=== PATIENT | female | born 1965 | race Caucasian/White ===

== ENCOUNTER → 2016-10-29 | Outpatient (CLI) | payer BC ==
[2016-10-29 18:16] LABS: BLOOD UREA NITROGEN 13 mg/dl (7-18); BUN/CREATININE RATIO 20.7 (10-20); CALCIUM 8.9 mg/dl (8.5-10.1); CARBON DIOXIDE 27 mmol/L (21-32); CHLORIDE 105 mmol/L (98-107); CREATININE 0.64 mg/dl (0.60-1.20); GLUCOSE 103 mg/dl (70-99); POTASSIUM 3.6 mmol/L (3.5-5.1); SODIUM 141 mmol/L (136-145)
[2016-10-29 18:27] LABS: CHOLESTEROL 180 mg/dl (0-200); CHOLESTEROL/HDL RATIO 4.4; HDL CHOLESTEROL 41 mg/dl; LDL CHOLESTEROL CALCULATED 71 mg/dl; PHOSPHORUS 3.1 mg/dl (2.5-4.9); TRIGLYCERIDES 338 mg/dl (0-150); VERY LOW DENSITY LIPOPROT CALC 68 mg/dl
[2016-10-29 20:03] LABS: ESTIMATED AVERAGE GLUCOSE 143 mg/dl; HA1C FLAG Normal (Normal)
== END | disposition home or self-care (01) ==
LOC: C.LABMFLN 14:52
PROVIDERS: ATTEND Family Medicine
DX: E66.9 Obesity, unspecified (principal); Z13.1 Encounter for screening for diabetes mellitus; Z13.220 Encounter for screening for lipoid disorders

== ENCOUNTER → 2017-04-29 | Outpatient (CLI) | payer BC ==
[2017-04-30 06:34] LABS: ESTIMATED AVERAGE GLUCOSE 131 mg/dl; HA1C FLAG Normal (Normal)
== END | disposition home or self-care (01) ==
LOC: C.LABMFLN 13:50
PROVIDERS: ATTEND Family Medicine
DX: R73.03 Prediabetes (principal)

== ENCOUNTER → 2017-07-05 | Outpatient (CLI) | payer BC ==
[2017-07-05 18:04] LABS: BASO % 0.6 %; BASO ABS # 0.03 K/uL (0-0.2); EOS % 4.5 %; EOS ABS # 0.21 K/uL (0-0.5); HEMATOCRIT 41.3 % (37-47); HEMOGLOBIN 13.5 g/dL (12.0-16.0); IG# 0.01 K/uL (0.00-0.02); LYMPH % 32.5 %; LYMPH ABS # 1.52 K/uL (1.2-3.4); MEAN CORPUSCULAR HEMOGLOBIN 26.5 pg (25-34); MEAN CORPUSCULAR HGB CONC 32.7 g/dl (32-36); MEAN PLATELET VOLUME 11.3 fL (7.4-10.4); MONO % 11.8 %; MONO ABS # 0.55 K/uL (0.11-0.59); NEUT % 50.4 %; NEUT ABS # 2.36 K/uL (1.4-6.5); PLATELET COUNT 227 K/uL (130-400); RED CELL DISTRIBUTION WIDTH CV 13.7 % (11.5-14.5); RED CELL DISTRIBUTION WIDTH SD 40.9 fL (36.4-46.3); WHITE BLOOD COUNT 4.68 K/uL (4.8-10.8)
== END | disposition home or self-care (01) ==
LOC: C.LABMFLN 14:38
PROVIDERS: ATTEND Family Medicine
DX: R06.02 Shortness of breath (principal)

== ENCOUNTER 2023-11-01 08:28 | Observation (INO) ==
--- NOTE | 2023-09-13 11:22 | PAT Medication Instructions ---
Medication Instructions Date of Service September 13, 2023 Home Medications cholecalciferol (vitamin D3) 125 mcg (5,000 unit) tablet 10,000 unit PO Q2D multivitamin 1 tab PO QPM Glucoberry 1 tab PO QAM ascorbic acid (vitamin C) 1,000 mg tablet (Vitamin C) 1 g PO QPM cetirizine 10 mg capsule (Zyrtec) 10 mg PO QAM allergy symptoms lactobacillus combination no.9 4 billion cell capsule (Adult 50 Plus Probiotic) 0 mmu cells PO QPM STOP taking 2 weeks before surgery (or as soon as possible if surgery is within 2 weeks) Glucoberry 1 tab PO QAM DO NOT take the morning of surgery cholecalciferol (vitamin D3) 125 mcg (5,000 unit) tablet 10,000 unit PO Q2D cetirizine 10 mg capsule (Zyrtec) 10 mg PO QAM allergy symptoms Take evening before surgery multivitamin 1 tab PO QPM ascorbic acid (vitamin C) 1,000 mg tablet (Vitamin C) 1 g PO QPM lactobacillus combination no.9 4 billion cell capsule (Adult 50 Plus Probiotic) 0 mmu cells PO QPM Other Notes If you have any questions please call us at [phone] or [phone] or [phone] or [phone]
--- NOTE | 2023-09-28 08:38 | Anesthesiology Consultation ---
Date of Service September 28, 2023 Assessment & Plan (1) Encounter for pre-operative examination: - check BSG am DOS. - [place] PCP 10/06/23 office note. Will send optimization workload note. - anesthesia considerations: patient states did not have neuraxial anesthesia with c-sections as elected for general due to concerns she might develop a spinal headache as she would frequently experience headaches in the past. She states headaches with associated vomiting have significantly reduced over the years and she would prefer spinal vs general for upcoming surgery. - glucoberry: patient expressed desire to not stop supplement for 2 weeks as this is used for diabetic control per patient. This was discussed with Dr. Islas who asked that patient stop supplement for 7 days. I contacted patient who states she is comfortable stopping supplement for 7 days, denied additional questions or concerns. Chart Review Chart Review: Pending: Refer to Additional Notes / Consult section and Patient seen in Pre Admission Testing Teaching & Discussion Pre-Anesthesia Teaching/Discussion Notes: Instructed NPO after midnight before surgery, except medications with 15 cc of water. Medication instructions provided according to the PAT guidelines. History Surgery Operation Date: 11/01/23 07:00 Proposed Procedures p Right Total Knee Arthroplasty - Jordi Darling, DO Height/Weight Height: 5 ft 1 in Weight: 87.9 kg Allergies Allergy/AdvReac Type Severity Reaction Status Date / Time cephalexin [From Keflex] Allergy Unknown hives Verified 09/09/23 14:44 Sulfa (Sulfonamide Allergy Unknown pt doesn't Verified 09/09/23 14:44 Antibiotics) know, my mom always told me allergic to Medications Home Medications Medication Instructions Recorded Confirmed Last Taken cholecalciferol (vitamin D3) 125 10,000 unit PO Q2D 08/14/20 09/09/23 Unknown mcg (5,000 unit) tablet multivitamin 1 tab PO QPM 08/14/20 09/09/23 Unknown Glucoberry 1 tab PO QAM 09/09/23 09/09/23 Unknown ascorbic acid (vitamin C) 1,000 mg 1 g PO QPM 09/09/23 09/09/23 Unknown tablet (Vitamin C) cetirizine 10 mg capsule (Zyrtec) 10 mg PO QAM allergy symptoms 09/09/23 09/09/23 Unknown lactobacillus combination no.9 4 0 mmu cells PO QPM 09/09/23 09/09/23 Unknown billion cell capsule (Adult 50 Plus Probiotic) Past Medical History Medical History (Updated 09/28/23 @ 08:47 by Yaima Grant PA-C) BMI 35.0-35.9,adult 35.5 Diabetes medication suggested/pt declines at current/using glucoberry. History of kidney stones (~2016) suspected-passed on own. History of recurrent UTIs hx at younger age. Will notice flare with stress - last uti > 7 yr ago. Seasonal allergies Patient denies h/o stroke, seizures, heart attack, heart failure, HTN, blood clots/DVTs or blood transfusions. Exercise / Class Metabolic Activity II 4-5 Yardwork/Stairs/Walk up hill (denies chest discomfort or shortness of breath with one flight of stairs) Past Family History Family History Father Diabetes Myocardial infarction Mother Breast cancer Melanoma Grandfather (Maternal) Stroke Grandfather (Paternal) Stroke Denies family history of Ovarian cancer Prostate cancer Lung cancer Colorectal cancer Hypertension Colonic polyp Past Surgical History Surgical History H/O colonoscopy May 2019 repeat 10yrs History of carpal tunnel release of both wrists History of urologic surgery bladder stretched x2/ childhood. S/P section x4 S/P dilation and curettage S/P hysterectomy Past Anesthesia History No Hx of Anesthesia Complications and No Family Hx of Anesthesia Complications History of PONV No Hx of Motion Sickness and History of PONV (with , denies needing scop patch) Social History Smoking Status: Never smoker Do You Dip or Chew Tobacco: No Hx Alcohol Use: No Hx Substance Use: No substance use type: does not use Review of Systems Snoring, denies witnessed apneas. Patient denies chest pain, shortness of breath, dyspnea on exertion, reflux, fever, chills, cough, wheezing, or palpitations. Physical Exam Vital Signs Vitals BP 133/62 P 85 TEMP 97.9 SP02 94% on RA RESP 18 Physical Patient resting comfortably in chair in no acute distress, alert and oriented, responding appropriately throughout visit Full cervical extension range of motion without pain TMD 3.5 finger breadths Mallampati Score 3 Dentition: one implant and two broken teeth; denies chipped or loose teeth, caps/crowns, or bridges Lungs: normal respiratory effort. Good air movement, clear throughout to auscultation, no adventitious breath sounds Cardiac: regular rate and rhythm, no murmurs noted Carotid arteries: negative bruit bilat Lab Results Anesthesia Preop Results Results Anesthesia Widget: WBC 7.89 K/ul (4.8-10.8) 09/28/23 Hgb 13.6 g/dl (12.0-16.0) 09/28/23 Hct 42.6 % (37.0-47.0) 09/28/23 Plt 259 K/uL (130-400) 09/28/23 Na 138 mmol/L (136-145) 09/28/23 K 4.2 mmol/L (3.5-5.1) 09/28/23 Cl 103 mmol/L (98-107) 09/28/23 CO2 27 mmol/L (21-32) 09/28/23 BUN 15 mg/dl (6-23) 09/28/23 Creat 0.54 mg/dl (0.6-1.2) L 09/28/23 Glucose Level 99 mg/dl (70-99(Fasting)) 09/28/23 PT 9.9 Seconds (9.0-12.0) 09/28/23 PTT 25 Seconds (21-31) 09/28/23 INR 0.9 (0.9-1.1) 09/28/23 HA1c 6.8 % (4.5-5.6) H 09/28/23 Blood Type O Negative 09/28/23 Antibody Screen NEGATIVE 09/28/23 Testing Electrocardiogram Date: 09/28/23 NSR, rate 81 bpm Cannot rule out anterior infarct Chest X-Ray Date: 09/28/23 No acute chest disease.
--- NOTE | 2023-10-28 12:20 | History & Physical Report ---
Date of Service October 28, 2023 Assessment & Plan (1) Osteoarthritis of right knee: We will proceed with a right total knee arthroplasty. Postoperatively she will be started on aspirin for DVT prophylaxis and kept overnight in the hospital for postop medical management. She plans to use [facility] upon discharge. History of Present Illness Chief Complaint: Osteoarthritis of the right knee. Primary Care Provider: Wanda Ritchie DO Ellen is a pleasant 57-year-old female who has been dealing with chronic increasing bilateral knee pain, right is worse than left. She saw my partner. X-rays and clinical examination have been diagnostic for advanced arthritis of both knees. She had cortisone injections without much relief. Unfortunately, her knee pain is affecting her quality of life. She is having trouble walking long distances. After failing conservative treatment, she has elected proceed with a right total knee arthroplasty. Allergies Allergy/AdvReac Type Severity Reaction Status Date / Time cephalexin [From Keflex] Allergy Unknown hives Verified 10/06/23 15:45 Sulfa (Sulfonamide Allergy Unknown pt doesn't Verified 10/06/23 15:45 Antibiotics) know, my mom always told me allergic to Home Medications Medication Instructions Recorded Confirmed Type cholecalciferol (vitamin D3) 125 10,000 unit PO Q2D 08/14/20 10/06/23 History mcg (5,000 unit) tablet multivitamin 1 tab PO QPM 08/14/20 10/06/23 History Glucoberry 1 tab PO QAM 09/09/23 10/06/23 History ascorbic acid (vitamin C) 1,000 mg 1 g PO QPM 09/09/23 10/06/23 History tablet (Vitamin C) cetirizine 10 mg capsule (Zyrtec) 10 mg PO QAM allergy symptoms 09/09/23 10/06/23 History lactobacillus combination no.9 4 0 mmu cells PO QPM 09/09/23 10/06/23 History billion cell capsule (Adult 50 Plus Probiotic) Past Med/Surg History Problem List Diabetes medication suggested/pt declines at current/using glucoberry. Osteoarthritis of right knee Bilateral primary osteoarthritis of knee EKG, abnormal (Chronic) Hyperlipidemia (Chronic) Obesity (BMI 30-39.9) (Chronic) Medical History BMI 35.0-35.9,adult 35.5 Seasonal allergies History of recurrent UTIs hx at younger age. Will notice flare with stress - last uti > 7 yr ago. History of kidney stones (~2016) suspected-passed on own. Surgical History History of urologic surgery bladder stretched x2/ childhood. History of carpal tunnel release of both wrists H/O colonoscopy May 2019 repeat 10yrs S/P dilation and curettage S/P section x4 S/P hysterectomy Family History Father Diabetes Myocardial infarction Mother Breast cancer Melanoma Grandfather (Maternal) Stroke Grandfather (Paternal) Stroke Denies family history of Ovarian cancer Prostate cancer Lung cancer Colorectal cancer Hypertension Colonic polyp Social History Smoking Status: Never smoker Second Hand Exposure: No; Do You Dip or Chew Tobacco: No; Hx Alcohol Use: No Hx Substance Use: No Preferred Language: Armenian Communication Ability: Effective Visual Impairment: Limited Hearing Ability: Normal Pipe Fitter Gas Pipe Required: No Beliefs That Will Affect Care: None marital status: Current Living Situation: Spouse and Family Current Living Situation Comment: spouse and two daughters current occupational status: employed current occupation: bakes and cooks at daughters [employer] How many Children do You have: 5 Feels Safe at Home: Yes Childhood Exposure to Second-Hand Smoke: No Seatbelt Use: always Sunscreen Use: Yes Assistive Devices: Glasses and Other Review of Systems All systems reviewed & are unremarkable except as noted in HPI & below. Physical Exam On physical examination of the right knee, she has a slight varus deformity. She has tenderness palpation of the distal medial femoral condyle and over the medial joint line.. Constitutional WD/WN, vitals as above Eyes PERRL, conjunctivae normal, anicteric sclerae ENMT external ear and nose normal, oropharynx normal Neck trachea midline, no thyromegaly Respiratory normal respiratory effort Cardiovascular RRR, no murmur, no edema Gastrointestinal (Abdomen) normal bowel sounds, soft, nontender, no hepatosplenomegaly Psychiatric A+Ox3, euthymic affect Results & Data Results & Data Laboratory Results . Diagnostic Findings X-rays of the right knee show advanced osteoarthritis with joint space narrowing, osteophyte formation, and [id number] articulation. PG Care Time/CCT Total # of Minutes Spent Total Time Spent with Patient: Total time spent is greater than 50% in coordination of care (as documented) at patient's floor/unit and/or counseling patient: Coding Level of Care Code None Diagnoses Osteoarthritis of right knee M17.11
[~2023-11-01 08:28] MED LIST: BUPIVACAINE 0.5 % 5 MG/1 ML PF 10ML VIAL ONE; MIDAZOLAM HCL 1 MG/ML 2ML VIAL ONE; ROPIVACAINE 0.5% 5 MG/ML 30 ML VIAL ONE
[2023-11-01] MEDS: ACETAMINOPHEN 500 MG TAB PO SCH ×2 (08:56→16:16)
[2023-11-01] MEDS: FAMOTIDINE 20 MG TAB PO SCH (08:57)
[2023-11-01] MEDS: dexAMETHasone**PF** 10 MG/ML VIAL IV SCH (08:57)
[2023-11-01] MEDS: LR 60ML/HR IV SCH (08:57)
[2023-11-01] MEDS: GABAPENTIN 600 MG DOSE PO SCH (08:57)
--- NOTE | 2023-11-01 09:06 | History & Physical Bridge Note ---
Date of Service November 01, 2023 History & Physical Bridge Note I have examined the patient, reviewed the History & Physical and in the interval since the performance of the History & Physical I have noted the following changes of clinical significance: no changes noted
[2023-11-01] MEDS ORDERED: PROPOFOL IV EMULSION 10 MG/ML 20 ML VIAL IV ONE ×2 (09:12→10:49)
[2023-11-01] MEDS: LR 500ML BOLUS, THEN 15ML/HR IV SCH (09:20)
[2023-11-01] MEDS ORDERED: Nursing to Pharmacy Communication SCH (09:30)
[2023-11-01] MEDS ORDERED: HYDROmorphone INJ 2 MG/ML SYR/VIAL IV PRN (09:48)
[2023-11-01] MEDS ORDERED: fentaNYL citrate PF 100 MCG/2 ML VIAL IV PRN (09:48)
[2023-11-01] MEDS ORDERED: ATROPINE SULFATE 0.1 MG/ML 10ML SYR IV PRN (09:48)
[2023-11-01] MEDS ORDERED: ePHEDrine sulfate 50 MG/ML AMP IV PRN (09:48)
[2023-11-01] MEDS ORDERED: ONDANSETRON INJ 2 MG/ML 2 ML VIAL IV PRN ×2 (09:48→14:21)
[2023-11-01] MEDS ORDERED: PROMETHAZINE HCL 6.25 MG in SODIUM CHLORIDE 0.9% 50 ML IV PRN (09:48)
[2023-11-01] MEDS: TRANEXAMIC ACID 1,000 MG **IV Pre-op IV SCH (10:12)
[2023-11-01] MEDS: ceFAZolin 2000MG 2,000 MG/15 ML SYR IV SCH ×2 (10:25→19:24)
[2023-11-01] MEDS ORDERED: PHENYLEPHRINE 100MCG/ML 10ML SYR IV ONE (10:43)
[2023-11-01] MEDS: TRANEXAMIC ACID 1,000 MG **IV Intra-op IV SCH (11:07)
[2023-11-01] MEDS: ORTHO JOINT ANESTHETIC ONE (11:08)
[2023-11-01] MEDS ORDERED: PHENYLEPHRINE HCL 10 MG/ML VIAL ONE (11:18)
--- NOTE | 2023-11-01 11:25 | Operative Report ---
PG Post Operative Report Pre & Post Diagnosis Operation Date: 11/01/23 10:00 Pre-Op Diagnosis: Right Knee Degenerative Joint Disease Post-Op Diagnosis: Right Knee Degenerative Joint Disease I identified the patient and participated in the time-out.: Yes Procedure Operation Date: 11/01/23 10:00 Actual Procedures p Right Total Knee Arthroplasty, Cemented(Right) - Jordi Darling DO Surgeon Jordi Darling DO Marketing Information Analyst Jordi Sanders PA-C Estimated Blood Loss 30 Findings Consistent with Post-Op Diagnosis Specimens Right femoral tibial bone Description of Procedure Implants used: I used a [employer] total knee arthroplasty system with a size 5 narrow femur, C tibia, 25 oval patella, and a size 13 medial congruent polyethylene bearing. All components were cemented in place with Biomet cement. Ellen arrived [facility] for the above procedure. She was seen in the preoperative holding area and the operative extremity was identified and signed. She was given a preoperative antibiotic, TXA, a spinal anesthetic and an adductor nerve block. She was taken back to the operating room and laid on the table in supine position. She was given basic sedation. The operative knee was then prepped and draped in sterile fashion. A timeout was done, and the patient and the operative extremity was properly identified. A midline incision was made directly over the patella. Dissection was taken down to the extensor mechanism. A midvastus arthrotomy was used. The medial retinaculum was released and the fat pad was mostly excised. The knee was flexed and the ACL, PCL, and meniscus were removed. A drill was sent down the center of the femoral canal followed by an intramedullary alonso. Off that alonso a distal femoral cutting block was placed. 9 mm was resected off the distal femur at 5 of valgus. A posterior referencing AP sizing guide was then placed on the distal femur. The femur measured to be a size 5. 2 drill holes were placed in 3 of external rotation. A 4-in-1 cutting block was then impacted into place. Anterior, posterior, and chamfer cuts were then made. The proximal tibia was then exposed. An external tibial alignment guide was placed. A tibial cut guide was then anchored in place and the proximal tibia was then resected. The posterior aspect of the knee was then opened up and any additional meniscus fragments and osteophytes were removed. The tibia measured to be a size C. The tibial plate was then placed in the appropriate rotation and the tibia was drilled and punched. Trial components were then placed. I used a size 13 medial congruent polyethylene insert. The knee was brought through a full range of motion and felt to be stable. The peg holes for the femoral component were then drilled. The patella was then everted and 9 mm was resected off the posterior aspect of the patella. The patella measured to be a size 25 oval. 3 peg holes were then drilled. A trial patella was placed. The knee was once again brought through a full range of motion and felt to be stable. Trial components were then removed. The surrounding soft tissues were injected with 100 cc of an orthopedic pain control cocktail. All components were then cemented into place with Biomet cement. The final polyethylene insert was then snapped into place. Once cement was dry the tourniquet was deflated. Hemostasis was obtained. A dilute betadyne lavage was then done for 3 minutes. The joint was then irrigated with normal saline solution. The midvastus ar throtomy was then closed with #1 Vicryl suture. The skin was closed with 2-0 Vicryl, 3-0V lock suture, and rajni. A soft compressive dressing was placed. She was then transferred to a hospital bed and taken to the postanesthesia care unit in stable condition. She tolerated the procedure well. Jordi Sanders PA-C, was present for the entire procedure. He was critical for patient positioning, prepping, draping, retraction exposure, wound closure and application of sterile dressing. I attest to the content of the Intraoperative Record and any orders documented therein. Any exceptions are noted below.
--- NOTE | 2023-11-01 12:30 | XRay Report ---
XR knee RT 1 or 2V routine CLINICAL HISTORY: Postoperative evaluation. COMPARISON: Right knee radiographs March 31, 2023. FINDINGS: Alignment of the total right knee arthroplasty is anatomic. No periprosthetic fracture or unexpected radiopaque foreign body. There are skin rajni. IMPRESSION: Expected findings following total right knee arthroplasty. ACT 112: Negative or not required by law. Electronically signed by: Guero Riley M.D. 11/01/2023 12:29 PM
--- NOTE | 2023-11-01 13:26 | Anesthesiology Progress Note ---
Date of Service November 01, 2023 Anesthesia Post Procedure Vital Signs Vital Signs: Temp Pulse Pulse Resp BP Pulse Ox O2 Del Method 11/01/23 13:15 88 20 115/84 95 Room Air 11/01/23 13:05 81 17 105/74 97 Room Air 11/01/23 12:55 84 16 114/72 93 Room Air 11/01/23 12:45 87 17 110/68 93 Room Air 11/01/23 12:35 97.5 F L 87 15 113/72 93 Room Air 11/01/23 12:25 83 17 105/73 97 Oxymask 11/01/23 12:15 80 16 107/62 100 Oxymask 11/01/23 12:05 82 15 102/66 100 Oxymask 11/01/23 11:55 82 15 98/59 L 99 Oxymask 11/01/23 11:46 97.0 F L 88 19 99/61 L 95 Oxymask 11/01/23 08:48 97.7 F 82 20 150/100 H 98 Room Air O2 Flow Rate 11/01/23 13:15 11/01/23 13:05 11/01/23 12:55 11/01/23 12:45 11/01/23 12:35 11/01/23 12:25 3 11/01/23 12:15 3 11/01/23 12:05 4 11/01/23 11:55 4 11/01/23 11:46 10 11/01/23 08:48 Transfer of Care Handoff Completed per policy Notes Mental Status: alert / awake / arousable and participated in evaluation Patient Amnestic to Procedure: Yes Nausea / Vomiting: adequately controlled Pain: adequately controlled Airway Patency, RR, SpO2: stable & adequate BP & HR: stable & adequate Hydration State: stable & adequate Neuraxial Anesthesia: was administered and sensory block is resolving Anesthetic Complications: no major complications apparent and Pt Satisfied with anesthetic care
[2023-11-01] MEDS ORDERED: bisacodyL 10 MG SUPP PR PRN (14:21)
[2023-11-01] MEDS ORDERED: METOCLOPRAMIDE HCL INJ 5 MG/ML 2 ML VIAL IV PRN (14:21)
[2023-11-01] MEDS ORDERED: NALOXONE HCL 0.4 MG/1 ML VIAL/CARP IV PRN (14:21)
[2023-11-01] MEDS ORDERED: HYDROmorphone INJ 0.5 MG/0.5 ML SYR IV PRN (14:21)
[2023-11-01] MEDS ORDERED: MAGNESIUM HYDROXIDE SUSP 30 ML UDC PO PRN (14:21)
[2023-11-01] MEDS: ROPIV 0.5% 246mg, Ketorolac 30mg, EPINEPHrine 0.5mg in NSS INFIL SCH (15:03)
[2023-11-01] MEDS: SODIUM CHLORIDE 0.9% 1,000 ML IV SCH (16:16)
[2023-11-01] MEDS: KETOROLAC 30 MG/ML VIAL IV SCH (16:18)
[2023-11-01] MEDS: oxyCODONE HCL IR 5 MG TAB (IMMEDIATE RELEASE) PO PRN (16:46)
[2023-11-01] MEDS: ASPIRIN 81 MG ECTAB PO SCH (21:22)
[2023-11-01] MEDS: SENNA 8.6 MG TAB PO SCH (21:23)
[2023-11-01] MEDS: DOCUSATE SODIUM 100 MG CAP PO SCH (21:23)
[2023-11-02] MEDS: ALLERGY Noted to ORDERED Medication SCH (00:37)
[2023-11-02] MEDS: CETIRIZINE HCL 10 MG TABLET PO SCH (08:04)
[2023-11-02] MEDS: dexAMETHasone 4 MG TAB PO SCH (08:04)
[2023-11-02] MEDS: MULTIVITAMIN TAB PO SCH (08:04)
--- NOTE | 2023-11-02 08:46 | Orthopedic Progress Note ---
Date of Service November 02, 2023 Assessment & Plan (1) Osteoarthritis of right knee: (2) Status post right knee replacement: Plan 58-year-old woman POD# 1 s/p right total knee replacement, doing well overall. Pain is well-controlled. Medically stable. Postop x-rays well-appearing. She is neurologically intact. Plan: 1. DVT prophylaxis w/ TEDs, SCDs, ASA 81 mg BID. 2. PT/OT as tolerated. WBAT on the R LE. Encourage heel slides, SLR, full knee extension w/ quad sets. 3. Pain control doing well with current pain regimen. 4. Dressing change by nursing after PT/OT, prior to discharge. Do not get operative site wet for 5 days. 5. Disposition - plan to D/C home w/ self-care and [facility] coming to her house, once cleared by PT/OT. She is familiar with things, as her has had 2 knee replacements. 6. F/u 2 weeks post-op w/ orthopedics (Dr. Darling's team), or as previously scheduled, for first post-op visit. Admission and Anticipated Discharge Date Admission Date: November 01, 2023 Subjective Patient is POD# 1 s/p right total knee arthroplasty by Dr. Darling on 11/01/2023. Patient says her pain is very well-controlled this morning. Denies CP, SOB, N/V, RLE paresthesia. She has home physical therapy with [facility] arranged to come to the house. Patient says that she is ready to go home today, and is looking forward to getting physical therapy started. Physical Exam Physical Exam: GENERAL: AA&Ox3, NAD. Pleasant, affect is calm. Sitting in bed and appears comfortable. RESPIRATORY: Normal respiratory effort with no signs of distress. CHEST/AXILLA: Chest movement symmetrical. No deformities noted. CARDIOVASCULAR: No edema noted. SKIN: [place], warm and dry. MS/EXTREMITY: Knee dressing & TAYLER wrap c/d/i. SHANNAN hose donned to contralateral LE. + ankle dorsi/plantarflexion. NVI distally. Calf soft/NT. PT/DP intact. +SLR. Results & Data Vital Signs (Past 12 Hours) Vital Signs Temp Pulse Resp BP BP Pulse Ox O2 Del Method 11/02/23 07:07 36.6 C 68 16 121/81 95 Room Air 11/02/23 03:52 36.4 C L 72 16 118/78 94 Room Air 11/02/23 00:32 36.4 C L 79 16 117/78 94 Room Air Laboratory Results Laboratory Results - last 48 hr 11/01/23 11/01/23 11/01/23 08:55 11:48 16:36 POC Glucose 118 H 151 H 255 H Diagnostic Findings Knee X-Ray 11/01/23 11:47 XR knee RT 1 or 2V routine CLINICAL HISTORY: Postoperative evaluation. COMPARISON: Right knee radiographs March 31, 2023. FINDINGS: Alignment of the total right knee arthroplasty is anatomic. No periprosthetic fracture or unexpected radiopaque foreign body. There are skin rajni. IMPRESSION: Expected findings following total right knee arthroplasty. ACT 112: Negative or not required by law. Electronically signed by: Guero Riley M.D. 11/01/2023 12:29 PM
--- NOTE | 2023-11-02 10:32 | Discharge Summary ---
Date of Service November 02, 2023 Admission HPI Per Admitting Provider Chief Complaint: Osteoarthritis of the right knee. Ellen is a pleasant 57-year-old female who has been dealing with chronic increasing bilateral knee pain, right is worse than left. She saw my partner. X-rays and clinical examination have been diagnostic for advanced arthritis of both knees. She had cortisone injections without much relief. Unfortunately, her knee pain is affecting her quality of life. She is having trouble walking long distances. After failing conservative treatment, she has elected proceed with a right total knee arthroplasty. (1) Osteoarthritis of right knee: We will proceed with a right total knee arthroplasty. Postoperatively she will be started on aspirin for DVT prophylaxis and kept overnight in the hospital for postop medical management. She plans to use [facility] upon discharge. Admission Exam Per Admitting Provider On physical examination of the right knee, she has a slight varus deformity. She has tenderness palpation of the distal medial femoral condyle and over the medial joint line.. Constitutional WD/WN, vitals as above Eyes PERRL, conjunctivae normal, anicteric sclerae ENMT external ear and nose normal, oropharynx normal Neck trachea midline, no thyromegaly Respiratory normal respiratory effort Cardiovascular RRR, no murmur, no edema Gastrointestinal (Abdomen) normal bowel sounds, soft, nontender, no hepatosplenomegaly Psychiatric A+Ox3, euthymic affect Diagnostic Findings X-rays of the right knee show advanced osteoarthritis with joint space narrowing, osteophyte formation, and scis-ef-oghb articulation. Principal Diagnosis Same as "Discharge Diagnosis" noted below under Discharge Instructions. Discharge Exam GENERAL: AA&Ox3, NAD. Pleasant, affect is calm. Sitting in bed and appears comfortable. RESPIRATORY: Normal respiratory effort with no signs of distress. CHEST/AXILLA: Chest movement symmetrical. No deformities noted. CARDIOVASCULAR: No edema noted. SKIN: [place], warm and dry. MS/EXTREMITY: Knee dressing & TAYLER wrap c/d/i. SHANNAN hose donned to contralateral LE. + ankle dorsi/plantarflexion. NVI distally. Calf soft/NT. PT/DP intact. +SLR. Discharge Data Allergies Allergy/AdvReac Type Severity Reaction Status Date / Time cephalexin [From Keflex] Allergy Unknown Anaphylaxis Verified 11/01/23 18:30 shellfish derived Allergy Unknown Anaphylaxis Verified 11/01/23 18:31 Sulfa (Sulfonamide Allergy Unknown pt doesn't Verified 11/01/23 08:53 Antibiotics) know, my mom always told me allergic to Procedures Performed Operation Date: 11/01/23 10:00 Actual Procedures p Right Total Knee Arthroplasty, Cemented(Right) - Jordi Darling DO Ordered Studies 11/01/23 05:00 US - OR guided needle placemen Routine Knee X-Ray 11/01/23 11:47 XR knee RT 1 or 2V routine CLINICAL HISTORY: Postoperative evaluation. COMPARISON: Right knee radiographs March 31, 2023. FINDINGS: Alignment of the total right knee arthroplasty is anatomic. No periprosthetic fracture or unexpected radiopaque foreign body. There are skin rajni. IMPRESSION: Expected findings following total right knee arthroplasty. ACT 112: Negative or not required by law. Electronically signed by: Guero Riley M.D. 11/01/2023 12:29 PM Hospital Course (1) Osteoarthritis of right knee: (2) Status post right knee replacement: On November 01, 2023 Ellen arrived at [facility] operating room and underwent a right total knee replacement without complications. Patient had a spinal anesthetic for the procedure. Postoperatively, patient was transferred to the general orthopedic floor in stable condition and eventually started onto aspirin 81 mg twice daily for DVT prophylaxis as appropriate. Patient's hospital course was uneventful. On postoperative day #1, patient's vital signs were stable and pain was well-controlled. Patient was able to participate well with physical therapy, safely performing the necessary ambulation and range of motion exercises. Patient was then discharged home in stable condition, with home physical therapy ([facility]) services to begin. Patient will follow-up with orthopedics in 2 weeks for postoperative care. Plan 58-year-old woman POD# 1 s/p right total knee replacement, doing well overall. Pain is well-controlled. Medically stable. Postop x-rays well-appearing. She is neurologically intact. Plan: 1. DVT prophylaxis w/ TEDs, SCDs, ASA 81 mg BID. 2. PT/OT as tolerated. WBAT on the R LE. Encourage heel slides, SLR, full knee extension w/ quad sets. 3. Pain control doing well with current pain regimen. 4. Dressing change by nursing after PT/OT, prior to discharge. Do not get operative site wet for 5 days. 5. Disposition - plan to D/C home w/ self-care and [facility] coming to her house, once cleared by PT/OT. She is familiar with things, as her has had 2 knee replacements. 6. F/u 2 weeks post-op w/ orthopedics (Dr. Darling's team), or as previously scheduled, for first post-op visit. Total Time Total Time Spent Total Time Spent (In Minutes): Total Time Spent with Patient: Total time spent is greater than 50% in coordination of care (as documented) at patient's floor/unit and/or counseling patient: Discharge Plan Discharge Items Patient Disposition: Home - Self-Care Reason For Visit: Right Knee Degenerative Joint Disease Discharge Diagnosis: Right knee replacement Activity: Per Instructions section Non-emergency contact: Primary Care Provider and Surgeon Call non-emergency contact if: your wound has increased redness and your wound has increased drainage Follow-up/Referrals: Wanda Ritchie-DO Candace [Primary Care Provider] - Jordi Sanders PA-C [Physician Machine Mover] - Diet: Regular Addtl Attending Provider Instructions: Activity and Therapy Recommendations: * If you are using [facility] then therapy will be provided at your home until they feel you have accomplished all of your goals. * If you are using [facility] then Physical Therapy will be provided until they feel you are ready to start Outpatient Physical Therapy. * If you are not using home therapy then Outpatient Physical Therapy should start about 3-5 days from your day of surgery. Therapy will last about 6-10 weeks * It is important not to put a pillow under your knee when you are relaxing or sleeping. It is just as important to make sure you are getting your knee perfectly straight as it is to regain your knee bend. * You were shown a series of exercises in the hospital. Do these exercises three times each day including the exercises you were shown in physical therapy. * Get up and walk several times each day. For the first four weeks, try not to stand or walk for more than one hour at a time. If you do stand or walk for more than one hour, you will not hurt anything, but your leg will likely swell. * As you feel comfortable, you may change from the walker or crutches to a cane and then to independent walking. Medications: * Narcotic You will likely be sent home from the hospital with a prescription for the narcotic pain medication that worked best throughout your stay. * Cefadroxil -take the antibiotic twice a day for 10 days to help prevent infection. * Aspirin Most patients will be required to take Aspirin 81mg twice a day for 6 weeks after surgery. This is obtained [id number] and a prescription is not necessary. * Other medications may be prescribed for specific circumstances. If you have any questions, please call the office at . * Resume previous home medications unless otherwise instructed TEDs/Elastic Stockings: The white elastic stockings help limit swelling and prevent blood clots from forming in your legs.~ The more you wear them, the more they work. Wear them for six weeks. Dressing Care: The dressing can be changed after physical therapy on postop day #1. Daily dry dressing changes for a few days, especially if the incision is still draining some. If the incision is not draining then you may leave the rajni open to air. If there is a little bit of drainage or if the rajni are getting stuck on your clothing then cover the incision with a dry dressing. The rajni will be removed at your 2 week follow-up appointment. Showering: You may shower 5 days from the day of surgery as long as the incision is no longer draining. You may shower with the rajni exposed. Let soapy water run over the rajni and pat them dry. Do not scrub or soak the incision. Things To Watch For: * Drainage from the incision site that occurs more than one week after your surgery. * Increased redness at the incision site. * Fever above 102 degrees Fahrenheit. * Unusual chest pain or shortness of breath. * Call [facility] at with any of the above problems Follow-Up Visit: Follow-up with Dr. Darling's PA (Jordi Sanders) 2-3 weeks after your day of surgery. He will remove your rajni and answer any questions. If you have any additional questions or concerns, Dr Darling is usually in the office at the same time and will be available An appointment was probably scheduled when you signed-up for surgery in the office. If you have any questions call Office Instructions: More detailed instructions as well as Frequently Asked Questions were provided in a folder by our office when you signed-up for surgery. Please review these instructions when you get home. If you have any further questions or concerns, please feel free to call the offi ce at [phone] Pending Studies at Discharge: No Stand-Alone Forms: My [facility] Medications and DC Order Prescriptions: New aspirin [Adult Aspirin Regimen] 81 mg tablet,delayed release (DR/EC) 81 mg PO BID Qty: 84 0RF cefadroxil 500 mg capsule 500 mg PO BID 10 Days Qty: 20 0RF oxycodone 5 mg tablet 5 mg PO Q6H PRN (Reason: pain) Qty: 30 0RF Continued multivitamin Tablet 1 tab PO QPM cholecalciferol (vitamin D3) 125 mcg (5,000 unit) tablet 10,000 unit PO Q2D Patient Comments: evening ascorbic acid (vitamin C) [Vitamin C] 1,000 mg Tablet 1 g PO QPM Zyrtec 10 mg capsule 10 mg PO QAM Adult 50 Plus Probiotic 4 billion cell capsule 0 mmu cells PO QPM Rx Instructions: administer with a meal Glucoberry 1 tab PO QAM Patient Comments: buy online Discharge Orders: Discharge Order (Routine); Ordered 11/02/23 Ordered By: Clint Anna Admission Data Admit Date/Time: 11/01/23 11:47 Attending Provider: Jordi Darling Admit Provider: Jordi Darling Primary Care Provider: Wanda Ritchie Other Interventions: Discharge Summary Assessment (RN) Last Done: 11/02/23 10:02
== END 2023-11-02 11:17 | disposition home or self-care (01) ==
LOC: 3E 08:28 → ASU 08:28

== ENCOUNTER 2024-02-28 07:45 | Observation (INO) ==
--- NOTE | 2024-02-16 10:09 | Anesthesiology Consultation ---
Date of Service February 16, 2024 Assessment & Plan (1) Encounter for pre-operative examination: Chart Review Chart Review: Acceptable Risk for Surgery and Patient NOT seen in Pre Admission Testing Pt currently scheduled as 23 hours observation. If surgeon decides to change patient to Same Day Joint, patient would be acceptable risk pending patient is motivated, has good support and surgeon's office completes Same Day Joint Program preop requirements. Infectious Disease screening: Per PAT nursing assessment on 02/16/24, No known infectious disease contacts in past 10 days or current infectious disease symptoms. No recent travel outside the country. History Surgery Operation Date: 02/28/24 07:00 Proposed Procedures p Left Total Knee Arthroplasty - Jordi Darling, Height/Weight Height: 5 ft 1 in Weight: 88.451 kg Allergies Allergy/AdvReac Type Severity Reaction Status Date / Time cephalexin [From Keflex] Allergy Severe Anaphylaxis Verified 02/16/24 08:36 shellfish derived Allergy Severe Anaphylaxis Verified 02/16/24 08:36 Sulfa (Sulfonamide Allergy Unknown pt doesn't Verified 02/16/24 08:36 Antibiotics) know, my mom always told me allergic to Medications Home Medications Medication Instructions Recorded Confirmed Last Taken multivitamin 1 tab PO QPM 08/14/20 02/16/24 10/31/23 22:00 Glucoberry 1 tab PO QAM 09/09/23 02/16/24 Unknown ascorbic acid (vitamin C) 1,000 mg 1 g PO QPM 09/09/23 02/16/24 Unknown tablet (Vitamin C) cetirizine 10 mg capsule (Zyrtec) 10 mg PO QPM allergy symptoms 09/09/23 02/16/24 10/30/23 21:00 lactobacillus combination no.9 4 0 mmu cells PO QPM 09/09/23 02/16/24 10/31/23 22:00 billion cell capsule (Adult 50 Plus Probiotic) Past Medical History Medical History (Updated 02/16/24 @ 10:24 by Marcela Anderson PA-C) Diabetes mellitus, type 2 diet controlled History of kidney stones (~2016) suspected-passed on own. History of recurrent UTIs hx at younger age. Will notice flare with stress - last uti > 7 yr ago. Hyperlipidemia diet controlled Obesity Osteoarthritis Scoliosis noted on 09/2023 CXR Seasonal allergies Past Family History Family History Father Diabetes Myocardial infarction Mother Melanoma Breast cancer Grandfather (Maternal) Stroke Grandfather (Paternal) Stroke Other No family history of adverse response to anesthesia Denies family history of Ovarian cancer Prostate cancer Lung cancer Colorectal cancer Hypertension Colonic polyp Past Surgical History Surgical History (Updated 02/16/24 @ 10:17 by Marcela Anderson PA-C) H/O colonoscopy May 2019 repeat 10yrs History of carpal tunnel release of both wrists History of total knee replacement R TKA 11/01/23; SAB L3-4 x 3 attempts, Regional adductor canal R x 1 attempt; pt eddie well History of urologic surgery bladder stretched x2/ childhood. S/P section x4 S/P dilation and curettage S/P hysterectomy Social History Smoking Status: Never smoker Do You Dip or Chew Tobacco: No Hx Alcohol Use: No Hx Substance Use: No substance use type: does not use Lab Results Anesthesia Preop Results Results Anesthesia Widget: WBC 7.83 K/ul (4.8-10.8) 02/09/24 Hgb 13.3 g/dl (12.0-16.0) 02/09/24 Hct 41.6 % (37.0-47.0) 02/09/24 Plt 282 K/uL (130-400) 02/09/24 Na 139 mmol/L (136-145) 02/09/24 K 4.1 mmol/L (3.5-5.1) 02/09/24 Cl 103 mmol/L (98-107) 02/09/24 CO2 27 mmol/L (21-32) 02/09/24 BUN 15 mg/dl (6-23) 02/09/24 Creat 0.67 mg/dl (0.6-1.2) 02/09/24 Glucose Level 129 mg/dl (70-99(Fasting)) H 02/09/24 PT 9.8 Seconds (9.0-12.0) 02/09/24 PTT 26 Seconds (21-31) 02/09/24 INR 0.9 (0.9-1.1) 02/09/24 Blood Type O Negative 02/09/24 Antibody Screen NEGATIVE 02/09/24 Testing Electrocardiogram Date: 09/28/23 Findings: + NSR @ (81bpm) cannot r/o anterior infarct Chest X-Ray Date: 09/28/23 Findings: + NAD prominent S shaped scoliosis Stress Test Date: 10/07/23 Type: DSE Findings: + WNL Normal dobutamine echocardiogram without evidence of inducible ischemia. Normal baseline EKG. At peak dobutamine infusion with atropine there was development of very minor upsloping ST segment depressions. Patient also developed frequent ventricular estopy which resolved as the medication was discontinued. Pt reached 98%MPHR Resting ECHO: EF 60-65%, borderline cLVH. LVWM normal at rest. LVSF nl. nl diastolic function. Mild-mod TR. RVSP is normal
[~2024-02-28 07:45] MED LIST changes: -MIDAZOLAM HCL 1 MG/ML 2ML VIAL ONE
[2024-02-28] MEDS: LR 60ML/HR IV SCH (08:31)
[2024-02-28] MEDS: LR 500ML BOLUS, THEN 15ML/HR IV SCH (08:31)
[2024-02-28] MEDS: FAMOTIDINE 20 MG TAB PO SCH (08:32)
[2024-02-28] MEDS: ACETAMINOPHEN 500 MG TAB PO SCH ×2 (08:32→14:10)
[2024-02-28] MEDS: GABAPENTIN 600 MG DOSE PO SCH (08:33)
[2024-02-28] MEDS: dexAMETHasone**PF** 10 MG/ML VIAL IV SCH (08:33)
[2024-02-28] MEDS ORDERED: MIDAZOLAM HCL 1 MG/ML 2ML VIAL ONE (08:53)
--- NOTE | 2024-02-28 09:02 | History & Physical Bridge Note ---
Date of Service February 28, 2024 History & Physical Bridge Note I have examined the patient, reviewed the History & Physical and in the interval since the performance of the History & Physical I have noted the following changes of clinical significance: no changes noted
[2024-02-28] MEDS ORDERED: fentaNYL citrate PF 100 MCG/2 ML VIAL IV PRN (09:21)
[2024-02-28] MEDS ORDERED: ONDANSETRON INJ 2 MG/ML 2 ML VIAL IV PRN ×2 (09:21→13:25)
[2024-02-28] MEDS ORDERED: ATROPINE SULFATE 0.1 MG/ML 10ML SYR IV PRN (09:21)
[2024-02-28] MEDS ORDERED: ePHEDrine sulfate 50 MG/ML AMP IV PRN (09:21)
[2024-02-28] MEDS: TRANEXAMIC ACID 1,000 MG **IV Pre-op IV SCH (09:36)
[2024-02-28] MEDS: ceFAZolin 2000MG 2,000 MG/15 ML SYR IV SCH ×2 (09:48→16:58)
[2024-02-28] MEDS ORDERED: LIDOCAINE 2% 2 ML VIAL/AMP(20MG/ML) INFIL ONE (09:58)
[2024-02-28] MEDS ORDERED: ONDANSETRON INJ 2 MG/ML 2 ML VIAL ONE (09:58)
[2024-02-28] MEDS ORDERED: PROPOFOL IV EMULSION 10 MG/ML 20 ML VIAL IV ONE (09:58)
[2024-02-28] MEDS ORDERED: PHENYLEPHRINE HCL 10 MG/ML VIAL ONE (09:59)
[2024-02-28] MEDS: ORTHO JOINT ANESTHETIC ONE (10:28)
[2024-02-28] MEDS: TRANEXAMIC ACID 1,000 MG **IV Intra-op IV SCH (10:52)
[2024-02-28] MEDS: ROPIV 0.5% 246mg, Ketorolac 30mg, EPINEPHrine 0.5mg in NSS INFIL SCH (10:52)
--- NOTE | 2024-02-28 11:00 | Operative Report ---
PG Post Operative Report Pre & Post Diagnosis Operation Date: 02/28/24 10:00 Pre-Op Diagnosis: Osteoarthritis Left Knee Post-Op Diagnosis: Osteoarthritis Left Knee I identified the patient and participated in the time-out.: Yes Procedure Operation Date: 02/28/24 10:00 Actual Procedures p Left Total Knee Arthroplasty(Left) - Jordi Darling DO Surgeon Jordi Darling DO Change Number Operator Jordi Sanders PA-C Estimated Blood Loss 30 Findings Consistent with Post-Op Diagnosis Specimens Left femoral and tibial bone Description of Procedure Implants used: I used a [employer] Person[employer] total knee arthroplasty system with a size 5 narrow femur, C tibia, 25 oval patella, and a size 14 medial congruent polyethylene bearing. All components were cemented in place with Biomet cement. Ellen arrived [facility] for the above procedure. She was seen in the preoperative holding area and the operative extremity was identified and signed. She was given a preoperative antibiotic, TXA, a spinal anesthetic and an adductor nerve block. She was taken back to the operating room and laid on the table in supine position. She was given basic sedation. The operative knee was then prepped and draped in sterile fashion. A timeout was done, and the patient and the operative extremity was properly identified. A midline incision was made directly over the patella. Dissection was taken down to the extensor mechanism. A subvastus arthrotomy was used. The medial retinaculum was released and the fat pad was mostly excised. The knee was flexed and the ACL, PCL, and meniscus were removed. A drill was sent down the center of the femoral canal followed by an intramedullary alonso. Off that alonso a distal femoral cutting block was placed. 9 mm was resected off the distal femur at 5 of valgus. A posterior referencing AP sizing guide was then placed on the distal femur. The femur measured to be a size 5. 2 drill holes were placed in 3 of external rotation. A 4-in-1 cutting block was then impacted into place. Anterior, posterior, and chamfer cuts were then made. The proximal tibia was then exposed. An external tibial alignment guide was placed. A tibial cut guide was then anchored in place and the proximal tibia was then resected. The posterior aspect of the knee was then opened up and any additional meniscus fragments and osteophytes were removed. The tibia measured to be a size C. The tibial plate was then placed in the appropriate rotation and the tibia was drilled and punched. Trial components were then placed. I used a size 14 medial congruent polyethylene insert. The knee was brought through a full range of motion and felt to be stable. The peg holes for the femoral component were then drilled. The patella was then everted and 9 mm was resected off the posterior aspect of the patella. The patella measured to be a size 25 oval. 3 peg holes were then drilled. A trial patella was placed. The knee was once again brought through a full range of motion and felt to be stable. Trial components were then removed. The surrounding soft tissues were injected with 100 cc of an orthopedic pain control cocktail. All components were then cemented into place with Biomet cement. The final polyethylene insert was then snapped into place. Once cement was dry the tourniquet was deflated. Hemostasis was obtained. A dilute betadyne lavage was then done for 3 minutes. The joint was then irrigated with normal saline solution. The subvastus arthrotomy was then closed with #1 Vicryl suture. The skin was closed with 2-0 Vicryl, 3-0V lock suture, and rajni. A soft compressive dressing was placed. She was then transferred to a hospital bed and taken to the postanesthesia care unit in stable condition. She tolerated the procedure well. Jordi Sanders PA-C, was present for the entire procedure. He was critical for patient positioning, prepping, draping, retraction exposure, wound closure and application of sterile dressing. I attest to the content of the Intraoperative Record and any orders documented therein. Any exceptions are noted below.
--- NOTE | 2024-02-28 11:50 | XRay Report ---
TWO VIEWS LEFT KNEE CLINICAL HISTORY: Postoperative examination. FINDINGS: AP and crosstable lateral portable views of the left knee are obtained. A left knee arthrop lasty is in near anatomic alignment. There has been undersurface remodeling of the patella. No acute fracture is seen. There are expected postoperative changes around the knee including skin clips, soft tissue edema, and subcutaneous gas. IMPRESSION: Expected postoperative changes status post left knee arthroplasty. No acute fracture is s een. ACT 112: Negative or not required by law. Electronically signed by: Saurav Baltazar M.D. 02/28/2024 11:49 AM
--- NOTE | 2024-02-28 12:10 | Anesthesiology Progress Note ---
Date of Service February 28, 2024 Anesthesia Post Procedure Vital Signs Vital Signs: Temp Pulse Pulse Resp BP Pulse Ox O2 Del Method 02/28/24 12:00 72 17 100/60 94 Room Air 02/28/24 11:50 72 16 97/61 L 92 Room Air 02/28/24 11:45 105/62 02/28/24 11:40 73 20 98/60 L 97 Oxymask 02/28/24 11:30 73 15 105/61 98 Oxymask 02/28/24 11:20 98.2 F 75 15 93/52 L 97 Oxymask 02/28/24 08:24 98.1 F 77 18 146/90 H 97 Room Air O2 Flow Rate 02/28/24 12:00 02/28/24 11:50 02/28/24 11:45 02/28/24 11:40 2 02/28/24 11:30 12 02/28/24 11:20 12 02/28/24 08:24 Transfer of Care Handoff Completed per policy Notes Mental Status: alert / awake / arousable and participated in evaluation Patient Amnestic to Procedure: Yes Nausea / Vomiting: adequately controlled Pain: adequately controlled Airway Patency, RR, SpO2: stable & adequate BP & HR: stable & adequate Hydration State: stable & adequate Neuraxial Anesthesia: was administered and sensory block is resolving Anesthetic Complications: no major complications apparent and Pt Satisfied with anesthetic care
[2024-02-28] MEDS ORDERED: MAGNESIUM HYDROXIDE SUSP 30 ML UDC PO PRN (13:25)
[2024-02-28] MEDS ORDERED: METOCLOPRAMIDE HCL INJ 5 MG/ML 2 ML VIAL IV PRN (13:25)
[2024-02-28] MEDS ORDERED: NALOXONE HCL 0.4 MG/1 ML VIAL/CARP IV PRN (13:25)
[2024-02-28] MEDS ORDERED: HYDROmorphone INJ 0.5 MG/0.5 ML SYR IV PRN (13:25)
[2024-02-28] MEDS ORDERED: bisacodyL 10 MG SUPP PR PRN (13:25)
[2024-02-28] MEDS: KETOROLAC 30 MG/ML VIAL IV SCH ×2 (14:10→20:20)
[2024-02-28] MEDS: SODIUM CHLORIDE 0.9% 1,000 ML IV SCH (14:36)
[2024-02-28] MEDS: oxyCODONE HCL IR 5 MG TAB (IMMEDIATE RELEASE) PO PRN (17:00)
[2024-02-28] MEDS ORDERED: Nursing to Pharmacy Communication SCH (17:15)
[2024-02-28] MEDS: ASPIRIN 81 MG ECTAB PO SCH (20:21)
[2024-02-28] MEDS: SENNA 8.6 MG TAB PO SCH (20:22)
[2024-02-28] MEDS: DOCUSATE SODIUM 100 MG CAP PO SCH (20:22)
[2024-02-29 03:06] VITALS: RESP 18; TEMP 98.1; O2SAT 94
--- NOTE | 2024-02-29 07:03 | Orthopedic Progress Note ---
Date of Service February 29, 2024 Assessment & Plan (1) Status post left knee replacement: Overall she is doing very well. She is not having much pain in the left knee. She will be seen by physical therapy today for ambulation and range of motion exercises. The nursing staff can change her dressing after physical therapy. She is on aspirin for DVT prophylaxis. She can be discharged to home later today. She will follow-up with orthopedics in 2 weeks. Darius Hughes was seen and examined at bedside this morning. Overall she is doing fairly well. She is not having much pain in the left knee. She has been up and ambulating to the bathroom. She has no complaints.. Review of Systems All systems reviewed & are unremarkable except as noted in HPI & below. Physical Exam On physical examination of the left knee, the dressing is clean and dry. Her leg is out full extension. She has active dorsiflexion plantarflexion of her left ankle.. Results & Data Results & Data Laboratory Results . Diagnostic Findings Postoperative x-rays of the left knee show the prosthesis to be in anatomic alignment without any evidence of fracture, dislocation, or loosening.. PG Care Time/CCT Total # of Minutes Spent Total Time Spent with Patient: Total time spent is greater than 50% in coordination of care (as documented) at patient's floor/unit and/or counseling patient: Coding Level of Care Code 78788 Post Operative Follow-Up Diagnoses Status post left knee replacement Z96.652
--- NOTE | 2024-02-29 07:04 | Discharge Summary ---
Date of Service February 29, 2024 Principal Diagnosis Same as "Discharge Diagnosis" noted below under Discharge Instructions. Discharge Exam On physical examination of the left knee, the dressing is clean and dry. Her leg is out full extension. She has active dorsiflexion plantarflexion of her left ankle.. Discharge Data Procedures Performed Operation Date: 02/28/24 10:00 Actual Procedures p Left Total Knee Arthroplasty(Left) - Jordi Darling DO Ordered Studies 02/28/24 05:00 US - OR guided needle placemen Routine Hospital Course (1) Status post left knee replacement: On February 28, 2024 Ellen arrived at [facility] and underwent a left knee replacement without complication. She had a spinal anesthetic. Postoperatively she was started on aspirin for DVT prophylaxis and transferred to the general orthopedic floors. Her hospital course was uneventful. On postop day #1, her vital signs were stable and her pain was well-controlled. She was able to participate well with physical therapy doing ambulation and range of motion exercises. She was then discharged to home. She will follow-up with orthopedics in 2 weeks. PG Care Time/CCT Total # of Minutes Spent Total Time Spent with Patient: Total time spent is greater than 50% in coordination of care (as documented) at patient's floor/unit and/or counseling patient: Discharge Plan Discharge Items Patient Disposition: Home - Self-Care Reason For Visit: Degenerative Joint Disease Left Knee Discharge Diagnosis: Left knee replacement Activity: Per Instructions section Non-emergency contact: Surgeon Call non-emergency contact if: your wound has increased redness and your wound has increased drainage Follow-up/Referrals: Wanda Ritchie DO [Primary Care Provider] - Diet: Regular Addtl Attending Provider Instructions: Activity and Therapy Recommendations: * If you are using [facility] then therapy will be provided at your home until they feel you have accomplished all of your goals. * If you are using [facility] then Physical Therapy will be provided until they feel you are ready to start Outpatient Physical Therapy. * If you are not using home therapy then Outpatient Physical Therapy should start about 3-5 days from your day of surgery. Therapy will last about 6-10 weeks * It is important not to put a pillow under your knee when you are relaxing or sleeping. It is just as important to make sure you are getting your knee perfectly straight as it is to regain your knee bend. * You were shown a series of exercises in the hospital. Do these exercises three times each day including the exercises you were shown in physical therapy. * Get up and walk several times each day. For the first four weeks, try not to stand or walk for more than one hour at a time. If you do stand or walk for more than one hour, you will not hurt anything, but your leg will likely swell. * As you feel comfortable, you may change from the walker or crutches to a cane and then to independent walking. Medications: * Narcotic You will likely be sent home from the hospital with a prescription for the narcotic pain medication that worked best throughout your stay. * Cefadroxil -take the antibiotic twice a day for 10 days to help prevent infection. * Aspirin Most patients will be required to take Aspirin 81mg twice a day for 6 weeks after surgery. This is obtained [id number] and a prescription is not necessary. * Other medications may be prescribed for specific circumstances. If you have any questions, please call the office at . * Resume previous home medications unless otherwise instructed TEDs/Elastic Stockings: The white elastic stockings help limit swelling and prevent blood clots from forming in your legs.~ The more you wear them, the more they work. Wear them for six weeks. Dressing Care: The dressing can be changed after physical therapy on postop day #1. Daily dry dressing changes for a few days, especially if the incision is still draining some. If the incision is not draining then you may leave the rajni open to air. If there is a little bit of drainage or if the rajni are getting stuck on your clothing then cover the incision with a dry dressing. The rajni will be removed at your 2 week follow-up appointment. Showering: You may shower 5 days from the day of surgery as long as the incision is no longer draining. You may shower with the rajni exposed. Let soapy water run over the rajni and pat them dry. Do not scrub or soak the incision. Diet: You may resume your previous diet. Things To Watch For: * Drainage from the incision site that occurs more than one week after your surgery. * Increased redness at the incision site. * Fever above 102 degrees Fahrenheit. * Unusual chest pain or shortness of breath. * Call [facility] at with any of the above problems Follow-Up Visit: Follow-up with Dr. Darling's PA (Jordi Sanders) 2-3 weeks after your day of surgery. He will remove your rajni and answer any questions. If you have any additional questions or concerns, Dr Darling is usually in the office at the same time and will be available An appointment was probably scheduled when you signed-up for surgery in the office. If you have any questions call Office Instructions: More detailed instructions as well as Frequently Asked Questions were provided in a folder by our office when you signed-up for surgery. Please review these instructions when you get home. If you have any further questions or concerns, please feel free to call the office at [phone] Pending Studies at Discharge: No Stand-Alone Forms: My [facility], Smoking Cessation Medications and DC Order Prescriptions: New oxycodone 5 mg Tablet 5 mg PO Q4H PRN (Reason: pain) Qty: 30 0RF cefadroxil 500 mg capsule 500 mg PO BID 10 Days Qty: 20 0RF aspirin 81 mg Tablet,Delayed Release (Dr/Ec) 81 mg PO BID 42 Days Qty: 0 0RF Continued multivitamin Tablet 1 tab PO QPM ascorbic acid (vitamin C) [Vitamin C] 1,000 mg Tablet 1 g PO QPM Zyrtec 10 mg capsule 10 mg PO QPM Adult 50 Plus Probiotic 4 billion cell capsule 0 mmu cells PO QPM Rx Instructions: administer with a meal Glucoberry 1 tab PO QAM Patient Comments: buy online Discharge Orders: Discharge Order (Routine); Ordered 02/29/24 Ordered By: Jordi Darling Admission Data Admit Date/Time: 02/28/24 11:27 Attending Provider: Jordi Darling Admit Provider: Jordi Darling Primary Care Provider: Wanda Ritchie
[2024-02-29 07:06] VITALS: BP 135/75; PULSE 76
[2024-02-29] MEDS: MULTIVITAMIN TAB PO SCH (08:04)
== END 2024-02-29 11:15 | disposition home or self-care (01) ==
LOC: ASU 07:45 → 3W 07:45